=== PATIENT | female | born 1985 | race Caucasian/White ===

== ENCOUNTER 2019-03-16 07:29 | Emergency (ER) | payer MEDICARE ==
[2019-03-16 07:45] VITALS: BP 163/108
[2019-03-16] MEDS ORDERED: BENZ100C PO (07:45)
--- NOTE | 2019-03-16 11:38 | PHYS DOC ---
Past History Past Medical History: Bipolar Past Surgical History: Appendectomy, Cholecystectomy, Tubal ligation Alcohol Use: None Drug Use: None Adult General Chief Complaint Chief Complaint: COUGH HPI HPI Patient is a 33-year-old female who is presenting with cough and sinus congestion. Times today she was driving up from [place] where she lives for a work shift and she didn't think she could make it through work she was coughing so much no fever came to the ER for evaluation Review of Systems Review of Systems Constitutional: Denies fever or chills [] Eyes: Denies change in visual acuity, redness, or eye pain [] Musculoskeletal: Denies back pain or joint pain [] Integument: Denies rash or skin lesions [] Neurologic: All other systems were reviewed and found to be within normal limits, except as documented in this note. Allergies Allergies Allergies Coded Allergies Type Severity Reaction Last Updated Verified lamotrigine Allergy Unknown 03/16/19 Yes latex Allergy Unknown 03/16/19 Yes Physical Exam Physical Exam Constitutional: Well developed, well nourished, no acute distress, non-toxic appearance. [] HENT: Normocephalic, atraumatic, bilateral external ears normal, oropharynx moist, no oral exudates, nose normal. [] Eyes: PERRLA, EOMI, conjunctiva normal, no discharge. [] Mild sinus tenderness is noted symmetric Neck: Normal range of motion, no tenderness, supple, no stridor. [] Cardiovascular:Heart rate regular rhythm, no murmur [] Lungs & Thorax: Bilateral breath sounds clear to auscultation [] Abdomen: Bowel sounds normal, soft, no tenderness, no masses, no pulsatile ma sses. [] Skin: Warm, dry, no erythema, no rash. [] Back: No tenderness, no CVA tenderness. [] Extremities: No tenderness, no cyanosis, no clubbing, ROM intact, no edema. [] Neurologic: Alert and oriented X 3, normal motor function, normal sensory function, no focal deficits noted. [] Psychologic: Affect normal, judgement normal, mood normal. [] Current Patient Data Vital Signs Vital Signs Date Time Temp Pulse Resp B/P (MAP) Pulse Ox O2 Delivery O2 Flow Rate FiO2 03/16/19 07:45 98.1 94 18 98 Room Air EKG EKG [] Radiology/Procedures Radiology/Procedures [] Impressions: stress * None Temperature (Fahrenheit): * 98.1 degrees F (97.6-99.5) Patient Temperature * 98.1 degrees F (97.5-99.5) Temperature Source * Oral Blood Pressure Systolic * 163 mm Hg (100-140) H Blood Pressure Diastolic * 108 mm Hg (60-100) H Blood Pressure Mean * 126 mm Hg Pulse Rate * 94 beats per minute (60-90) H Respiratory Rate * 18 breaths per minute (12-24) Oxygen Delivery Method * Room Air Bedside Pulse Oximetry * 98 % Treatment Prior to Arrival * No Complaint of Pain * No LOC * Alert Coma Scale Eye Opening * 4-Spontaneous Coma Scale Motor Course & Med Decision Making Course & Med Decision Making Pertinent Labs and Imaging studies reviewed. (See chart for details) []Suspect viral syndrome lungs clear patient well-appearing work note given return precautions discussed Dragon Disclaimer Dragon Disclaimer This electronic medical record was generated, in whole or in part, using a voice recognition dictation system. Departure Departure: Impression: Primary Impression: Cough Disposition: 01 HOME, SELF-CARE Condition: STABLE Referrals: PCP,UNKNOWN (PCP) Patient Instructions: Cough, Adult, [id number] Scripts Benzonatate (TESSALON PERLE) 100 Mg Capsule 1 CAP PO TID PRN for COUGH, #21 CAP Prov: NELLY GAGE MD 03/16/19 NELLY GAGE MD Mar 16, 2019 11:38
== END 2019-03-16 07:48 | disposition home or self-care (01) ==
LOC: ER 07:29
DX: R05 Cough (principal); R09.81 Nasal congestion; Z91.040 Latex allergy status; Z88.8 Allergy status to other drugs, medicaments and biological substances
CPT/HCPCS: 99283